=== PATIENT | female | born 1985 | race Two or more races ===

== ENCOUNTER 2023-06-25 12:35 | Emergency (ER) | payer OTHER ==
[~2023-06-25] VITALS: Ht 170.2 cm; Wt 105.2 kg
[2023-06-25] MEDS ORDERED: ONDANSETRON HCL/PF 4 MG/2 ML VIAL ONE (13:12)
[2023-06-25] MEDS ORDERED: MORPHINE SULFATE INJ 4 MG/ML DISP.SYRIN ONE (13:13)
[2023-06-25] MEDS: ONDANSETRON HCL/PF 4 MG/2 ML VIAL IVP ONE (13:15)
[2023-06-25] MEDS: MORPHINE SULFATE INJ 2 MG/ML DISP.SYRIN IV ONE (13:17)
[2023-06-25 13:18] LABS: BASOPHILS # (AUTO) 0.1 K/uL (0.0-0.2); BASOPHILS % (AUTO) 0.6 % (0.0-2.0); HEMATOCRIT 40 % (33-45); HEMOGLOBIN 13.5 g/dL (11.5-14.8); LYMPHOCYTES # (AUTO) 1.7 K/uL (0.8-4.8); LYMPHOCYTES % (AUTO) 14.4 % (20.0-44.0); MEAN CORPUSCULAR HEMOGLOBIN 30 PG (26.0-33.0); MEAN CORPUSCULAR HGB CONC 34 g/dl (31.0-36.0); MEAN CORPUSCULAR VOLUME 87 fL (82-100); NEUTROPHILS # (AUTO) 9.2 K/uL (1.8-8.9); PLATELET COUNT (AUTO) 291 K/uL (150-450); RED BLOOD CELL COUNT(AUTO) 4.56 MIL/uL (4.0-5.2); RED CELL DISTRIBUTION WIDTH 13.2 % (11.5-15.0)
[2023-06-25] MEDS: IV NS 0.9% 500 ML BAG IV ONE (13:20)
[2023-06-25 13:27] LABS: APPEARANCE,URINE Slightly Cloudy (CLEAR); BILIRUBIN,URINE SMALL (NEGATIVE); BLOOD, URINE Small Ery/uL (NEGATIVE); COLOR,URINE YELLOW (YELLOW); KETONES,URINE 80 mg/dL (NEGATIVE); LEUKOCYTE ESTERASE ,URINE Large (NEGATIVE); NITRITE, URINE Positive (NEGATIVE); PREGNANCY TEST URINE QUAL NEGATIVE (NEGATIVE); PROTEIN,URINE 30 mg/dl (NEGATIVE); UGLUCOSE Negative (NEGATIVE)
[2023-06-25 13:34] LABS: ALBUMIN 3.2 g/dL (3.4-5.0); BILIRUBIN,DIRECT 0.4 mg/dL (0.0-0.2); BILIRUBIN,TOTAL 1.3 mg/dL (0.2-1.0); CALCIUM, SERUM 9.2 mg/dL (8.5-10.1); CREATININE 0.8 mg/dL (0.6-1.3); POTASSIUM 3.5 mmol/L (3.5-5.1); TOTAL PROTEIN, SERUM 8.3 g/dL (6.4-8.2)
[2023-06-25 13:47] LABS: ADD URINE CULTURE YES; BACTERIA,URINE 2+ /HPF (None Seen); MUCUS,URINE Few /LPF (None Seen); WBC,URINE 21-50 /HPF (0-3)
[2023-06-25] MEDS ORDERED: CEFTRIAXONE 1GM BAG (ER ONLY) 50 ML IV ONE (13:59)
[2023-06-25] MEDS: CEFTRIAXONE 1GM BAG (ER ONLY) 1 GM/50 ML PIGGYBACK IV ONE (14:00)
[2023-06-25] MEDS ORDERED: CIPR-262 PO (14:46)
[2023-06-25 14:59] VITALS: BP 126/75; TEMP 99.7; O2SAT 99
[2023-06-27] MEDS ORDERED: CEFTRIAXONE 1GM BAG (ER ONLY) 50 ML IV ONE (14:44)
== END 2023-06-25 15:00 | disposition home or self-care (01) ==
LOC: ER 12:35
DX: N12 Tubulo-interstitial nephritis, not specified as acute or chronic (principal); Z88.8 Allergy status to other drugs, medicaments and biological substances
CPT/HCPCS: 99285; 74176; 96374; 96375 ×2; 85025; 80048; 87086; 83690; 80076; 84703; 81001; 36415; J2270; J2405; J7040; A4223; J0696

== ENCOUNTER 2023-06-27 08:57 | Emergency (ER) | payer OTHER ==
[~2023-06-27] VITALS: Ht 170.2 cm; Wt 105.2 kg
[~2023-06-27 08:57] MED LIST: CIPR-262 PO
[2023-06-27 11:03] LABS: BASOPHILS % (AUTO) 0.6 % (0.0-2.0); EOSINOPHILS % (AUTO) 0.5 % (0.0-6.0); HEMATOCRIT 39 % (33-45); HEMOGLOBIN 13.2 g/dL (11.5-14.8); LYMPHOCYTES # (AUTO) 1.6 K/uL (0.8-4.8); LYMPHOCYTES % (AUTO) 22.6 % (20.0-44.0); MEAN CORPUSCULAR HEMOGLOBIN 30 PG (26.0-33.0); MEAN CORPUSCULAR HGB CONC 34 g/dl (31.0-36.0); MEAN CORPUSCULAR VOLUME 88 fL (82-100); MONOCYTES # (AUTO) 0.9 K/uL (0.1-1.30); MONOCYTES % (AUTO) 12.5 % (2.0-12.0); NEUTROPHILS # (AUTO) 4.5 K/uL (1.8-8.9); NEUTROPHILS % (AUTO) 63.8 % (43.0-81.0); PLATELET COUNT (AUTO) 279 K/uL (150-450); RED BLOOD CELL COUNT(AUTO) 4.46 MIL/uL (4.0-5.2)
[2023-06-27 11:10] LABS: CALCIUM, SERUM 9.3 mg/dL (8.5-10.1); CREATININE 0.8 mg/dL (0.6-1.3); POTASSIUM 3.9 mmol/L (3.5-5.1)
[2023-06-27 11:21] LABS: ALBUMIN 2.9 g/dL (3.4-5.0); BILIRUBIN,DIRECT 0.2 mg/dL (0.0-0.2); BILIRUBIN,TOTAL 0.6 mg/dL (0.2-1.0); TOTAL PROTEIN, SERUM 8.2 g/dL (6.4-8.2)
[2023-06-27 12:12] LABS: OCCULT BLOOD STOOL POSITIVE (NEGATIVE)
[2023-06-27 13:22] LABS: APPEARANCE,URINE CLEAR (CLEAR); BILIRUBIN,URINE 2+ (NEGATIVE); BLOOD, URINE 1+ Ery/uL (NEGATIVE); COLOR,URINE YELLOW (YELLOW); KETONES,URINE 3+ mg/dL (NEGATIVE); LEUKOCYTE ESTERASE ,URINE 2+ (NEGATIVE); NITRITE, URINE NEGATIVE (NEGATIVE); PROTEIN,URINE NEGATIVE (NEGATIVE); UGLUCOSE NEGATIVE (NEGATIVE); UROBILINOGEN,URINE 0.2 EU/dL (0.2)
[2023-06-27 13:25] LABS: ADD URINE CULTURE YES; BACTERIA,URINE Few /HPF (None Seen); PREGNANCY TEST URINE QUAL NEGATIVE (NEGATIVE); SQUAMOUS EPITHELIAL CELL,UR Rare /HPF (None Seen)
[2023-06-27] MEDS ORDERED: IOHEXOL-300 100 ML VIAL IV ONE (13:54)
[2023-06-27] MEDS ORDERED: IV NS 0.9% 250 ML IV ONE (13:55)
[2023-06-27] MEDS: CEFTRIAXONE 1 G in IV D5W 50 ML IV ONE (14:30)
[2023-06-27] MEDS ORDERED: ONDA4TAB5 PO (15:28)
[2023-06-27] MEDS ORDERED: HYDR-4303 PO (15:28)
[2023-06-27] MEDS ORDERED: FAMO-131 PO (15:28)
[2023-06-27] MEDS: KETOROLAC TROMETHAMINE 15 MG/ML VIAL IV ONE (15:30)
[2023-06-27] MEDS: IV NS 0.9% 1,000 ML BAG IV ONE (15:30)
[2023-06-27] MEDS ORDERED: KETOROLAC TROMETHAMINE 15 MG/ML VIAL ONE (15:44)
[2023-06-27] MEDS ORDERED: PANTOPRAZOLE 40 MG VIAL ONE (15:44)
[2023-06-27] MEDS: PANTOPRAZOLE 80 MG in IV NS 0.9% 500 ML IV ONE ×2 (15:56→16:00)
[2023-06-27 17:17] VITALS: BP 126/71; TEMP 97.9; O2SAT 99
== END 2023-06-27 17:18 | disposition home or self-care (01) ==
LOC: ER 09:00
DX: N39.0 Urinary tract infection, site not specified (principal); K92.2 Gastrointestinal hemorrhage, unspecified; R74.01 Elevation of levels of liver transaminase levels; K76.0 Fatty (change of) liver, not elsewhere classified; R10.32 Left lower quadrant pain; Z88.8 Allergy status to other drugs, medicaments and biological substances; Z60.2 Problems related to living alone
CPT/HCPCS: 99285; 74177; 96365; 76705; 96361; 96375 ×2; 85025; 80048; 87086; 83690; 80076; 82272; 84703; 81001; 36415; J0696; J7060; J7030; J7050; C9113; Q9967; J1885